=== PATIENT | male | born 1990 | race Two or more races ===

== ENCOUNTER 2018-03-04 15:40 | Emergency (ER) | payer SELFPAY ==
[~2018-03-04] VITALS: Ht 152.4 cm; Wt 75.0 kg
[2018-03-04 15:45] VITALS: BP 143/95
== END 2018-03-04 20:19 | disposition left against medical advice (07) ==
LOC: ER 16:40
DX: T14.8XXA Other injury of unspecified body region, initial encounter (principal); W57.XXXA Bitten or stung by nonvenomous insect and other nonvenomous arthropods, initial encounter; Y93.89 Activity, other specified; Y92.89 Other specified places as the place of occurrence of the external cause; Y99.8 Other external cause status
CPT/HCPCS: 99281

== ENCOUNTER 2018-04-12 14:03 | Inpatient (IN) | payer SELFPAY ==
[~2018-04-12] VITALS: Ht 160 cm; Wt 74.8 kg
[2018-04-12] MEDS ORDERED: MORPHINE SULFATE 4 MG/ML CPJ (NOT FOR IM USE) IV STA (14:35)
[2018-04-12] MEDS ORDERED: ONDANSETRON HCL 4MG/2ML INJ IV STA (14:35)
[2018-04-12] MEDS ORDERED: TETANUS, DIPHTHERIA, PERTUSSIS VAC/PF 0.5ML (>7YR OLD) IM ONE (15:30)
[2018-04-12 15:52] LABS: BASOPHILS % 0.5 % (0.0-2.0); EOSINOPHILS % 1.9 % (0.0-5.0); HEMATOCRIT. 49.1 % (42.0-52.0); HEMOGLOBIN. 16.7 g/dL (14.0-18.0); LYMPHOCYTES % 30.5 % (20.0-50.0); MEAN CORPUSCULAR HEMOGLOBIN 30.5 pg (28.0-32.0); MEAN CORPUSCULAR VOLUME 89.5 fL (80.0-94.0); MEAN PLATELET VOLUME 9.1 fl (7.4-10.4); MONOCYTES % 9.6 % (2.0-8.0); NEUTROPHILS % 57.5 % (40.0-76.0); PLATELET 302 x1000/uL (130-400); RED BLOOD CELL COUNT 5.48 mill/uL (4.7-6.1); RED CELL DISTRIBUTION WIDTH 13.3 % (11.6-14.6)
[2018-04-12 15:58] LABS: CHLORIDE 104 mEq/L (98-107); PROTHROMBIN TIME 9.9 sec (9.1-11.1)
[2018-04-12] MEDS ORDERED: LIDOCAINE HCL/EPINEPHRINE 1%-EPI 1:100,000 20 ML VIAL MC ONE (17:15)
[2018-04-12] MEDS ORDERED: BACITRACIN ZINC OINT UDPKT TOP ONE (17:15)
[2018-04-12] MEDS ORDERED: IOHEXOL-350 100 ML BOTTLE ONE (18:28)
[2018-04-12] MEDS ORDERED: CEFAZOLIN 1000MG PREMIX 50 ML IV ONE (19:15)
[2018-04-12] MEDS ORDERED: HYDROCODONE/ACETAMINOPHEN 10/325MG TABLET PO ONE (19:45)
[2018-04-12 22:27] LABS: CLARITY URINE CLEAR (CLEAR); COLOR URINE YELLOW (YELLOW); KETONES URINE NEGATIVE (NEGATIVE); LEUKOCYTE ESTERASE URINE NEGATIVE (NEGATIVE); NITRITE URINE NEGATIVE (NEGATIVE); OCCULT BLOOD URINE NEGATIVE (NEGATIVE); PROTEIN URINE NEGATIVE (NEGATIVE); UROBILINOGEN URINE 0.2 E.U./dL (0.2-1.0)
[2018-04-13] MEDS ORDERED: AMPICILLIN SOD/SULBACTAM NA 3 G in SODIUM CHLORIDE 0.9% 100 ML IV STA (00:36)
[2018-04-13 04:00] VITALS: BP 143/84
[2018-04-13] MEDS ORDERED: HYDROCODONE/ACETAMINOPHEN 5/325MG TABLET PO PRN (04:45)
[2018-04-13] MEDS: MORPHINE SULFATE 4 MG/ML CPJ (NOT FOR IM USE) IV PRN ×4 (05:01→20:28)
[2018-04-13 05:47] VITALS: BP 158/83
[2018-04-13] MEDS: PIPERACILLIN/TAZ 3.375G PREMIX 50 ML IV SCH ×4 (06:55→23:56)
[2018-04-13 08:00] VITALS: BP 168/85
[2018-04-13 12:00] VITALS: BP 158/101
[2018-04-13 16:00] VITALS: BP 145/87
[2018-04-13 20:00] VITALS: BP 146/76
[2018-04-13] MEDS ORDERED: ACETAMINOPHEN 325MG TABLET PO PRN (20:45)
[2018-04-14] VITALS: BP 148/78
[2018-04-14] MEDS: MORPHINE SULFATE 4 MG/ML CPJ (NOT FOR IM USE) IV PRN ×2 (01:43→09:56)
[2018-04-14 04:00] VITALS: BP 138/76
[2018-04-14] MEDS: PIPERACILLIN/TAZ 3.375G PREMIX 50 ML IV SCH ×2 (07:38→11:40)
[2018-04-14 10:02] VITALS: BP 138/76
== END 2018-04-14 11:55 | disposition home or self-care (01) | DRG 384 ==
LOC: ER 14:03 → 6EST 04-13 00:39 → ENRESERV 04-13 00:56
PROVIDERS: ADMIT Internal Medicine; ATTEND Internal Medicine
PROC: 0JQH3ZZ Repair Left Lower Arm Subcutaneous Tissue and Fascia, Percutaneous Approach (ICD-10-PCS; principal; 2018-04-13)
PROC: 0HQCXZZ Repair Left Upper Arm Skin, External Approach (ICD-10-PCS; 2018-04-13)
DX: S51.022A Laceration with foreign body of left elbow, initial encounter (principal); T22.322A Burn of third degree of left elbow, initial encounter; S46.222A Laceration of muscle, fascia and tendon of other parts of biceps, left arm, initial encounter; J45.909 Unspecified asthma, uncomplicated; V43.52XA Car driver injured in collision with other type car in traffic accident, initial encounter; Y93.89 Activity, other specified; Y92.488 Other paved roadways as the place of occurrence of the external cause; Y99.8 Other external cause status
CPT/HCPCS: 12001; 12031; 36415; 71045; 71275; 73060; 73080; 73200; 74174; 90471; 90715; 93005; 96365; 96375; 99285; A4565; J0295; J0690; J2270; J2405; J2543; J3490; J7030; J7050; Q9967

== ENCOUNTER 2018-04-25 14:16 | Emergency (ER) | payer SELFPAY ==
[~2018-04-25] VITALS: Ht 165.1 cm; Wt 73.0 kg
[2018-04-25 14:23] VITALS: BP 155/95
== END 2018-04-25 18:00 | disposition left against medical advice (07) ==
LOC: ER 14:16
DX: Z53.21 Procedure and treatment not carried out due to patient leaving prior to being seen by health care provider (principal)

== ENCOUNTER 2018-04-30 14:09 | Emergency (ER) | payer SELFPAY ==
[~2018-04-30] VITALS: Ht 165.1 cm; Wt 75.0 kg
[2018-04-30] MEDS ORDERED: IBUPROFEN 600MG TABLET PO ONE (14:45)
[2018-04-30 14:51] VITALS: BP 119/68
[2018-04-30] MEDS ORDERED: BACITRACIN ZINC OINT UDPKT TOP ONE (15:30)
== END 2018-04-30 15:40 | disposition home or self-care (01) ==
LOC: ER 15:39
DX: Z48.02 Encounter for removal of sutures (principal); S40.812A Abrasion of left upper arm, initial encounter; L03.114 Cellulitis of left upper limb; X58.XXXA Exposure to other specified factors, initial encounter; Y93.89 Activity, other specified; Y92.89 Other specified places as the place of occurrence of the external cause; F12.90 Cannabis use, unspecified, uncomplicated; F15.10 Other stimulant abuse, uncomplicated; Z72.0 Tobacco use
CPT/HCPCS: 99283

== ENCOUNTER 2019-08-21 07:34 | Emergency (ER) | payer MEDICAID | END 2019-08-21 08:53 | disposition left against medical advice (07) | LOC: ER 08:01 | DX: Z53.21 Procedure and treatment not carried out due to patient leaving prior to being seen by health care provider (principal) ==

== ENCOUNTER 2019-10-20 | Emergency (ER) | payer MEDICAID ==
[~2019-10-20] VITALS: Ht 165.1 cm; Wt 68.0 kg
[2019-10-20] MEDS ORDERED: CEFAZOLIN 1000MG PREMIX 50 ML IV ONE (00:15)
[2019-10-20] MEDS ORDERED: SODIUM CHLORIDE 0.9% 1,000 ML IV ONE (00:15)
[2019-10-20] MEDS ORDERED: LIDOCAINE HCL/EPINEPHRINE 1%-EPI 1:100,000 30 ML VIAL INFIL ONE (00:30)
[2019-10-20 00:46] LABS: BASOPHILS % 0.6 % (0.0-2.0); EOSINOPHILS % 2.1 % (0.0-5.0); HEMATOCRIT. 46.4 % (42.0-52.0); HEMOGLOBIN. 15.5 g/dL (14.0-18.0); LYMPHOCYTES % 38.6 % (20.0-50.0); MEAN CORPUSCULAR HEMOGLOBIN 29.4 pg (28.0-32.0); MEAN CORPUSCULAR VOLUME 88.2 fL (80.0-94.0); MEAN PLATELET VOLUME 9.3 fl (7.4-10.4); MONOCYTES % 6.8 % (2.0-8.0); NEUTROPHILS % 51.9 % (40.0-76.0); PLATELET 306 x1000/uL (130-400); RED BLOOD CELL COUNT 5.26 mill/uL (4.7-6.1); RED CELL DISTRIBUTION WIDTH 14.4 % (11.6-14.6)
[2019-10-20 00:54] LABS: CHLORIDE 106 mEq/L (98-107)
[2019-10-20 00:58] LABS: ETHANOL BLOOD 194 mg/dL
[2019-10-20] MEDS ORDERED: LIDOCAINE HCL/EPINEPHRINE 1%-EPI 1:100,000 20 ML VIAL INFIL SCH (01:00)
[2019-10-20 01:09] LABS: INR 0.9; PARTIAL THROMBOPLASTIN TIME 26.1 sec (23.4-31.0); PROTHROMBIN TIME 10.3 sec (9.6-11.0)
[2019-10-20] MEDS ORDERED: TETANUS, DIPHTHERIA, PERTUSSIS VAC/PF 0.5ML (>7YR OLD) IM ONE (02:45)
[2019-10-20] MEDS ORDERED: KETOROLAC 30MG/ML VIAL IV ONE (04:30)
[2019-10-20 05:30] VITALS: BP 128/81
== END 2019-10-20 06:25 | disposition home or self-care (01) ==
LOC: ER 00:26
DX: S01.81XA Laceration without foreign body of other part of head, initial encounter (principal); S01.112A Laceration without foreign body of left eyelid and periocular area, initial encounter; S41.011A Laceration without foreign body of right shoulder, initial encounter; J45.909 Unspecified asthma, uncomplicated; W26.0XXA Contact with knife, initial encounter; X58.XXXA Exposure to other specified factors, initial encounter; Y93.89 Activity, other specified; Y92.89 Other specified places as the place of occurrence of the external cause; Y99.8 Other external cause status
CPT/HCPCS: 12005; 12017; 36415; 71045; 80053; 80320; 84484; 85025; 85610; 85730; 96365; 96375; 99285; J0690; J1885; J3490; J7030; 12015; G0480

== ENCOUNTER 2019-10-28 15:15 | Emergency (ER) | payer MEDICAID ==
[~2019-10-28] VITALS: Ht 165.1 cm; Wt 74.8 kg
[2019-10-28 15:34] VITALS: BP 132/86
== END 2019-10-28 18:18 | disposition home or self-care (01) ==
LOC: ER 15:15
DX: Z48.02 Encounter for removal of sutures (principal)
CPT/HCPCS: 99281

== ENCOUNTER 2019-11-03 11:23 | Emergency (ER) | payer MEDICAID ==
[~2019-11-03] VITALS: Ht 165.1 cm; Wt 75.0 kg
[2019-11-03 11:49] VITALS: BP 125/62
[2019-11-03] MEDS ORDERED: BACITRACIN ZINC OINT UDPKT TOP ONE (12:30)
== END 2019-11-03 12:46 | disposition home or self-care (01) ==
LOC: ER 11:23
DX: S00.511D Abrasion of lip, subsequent encounter (principal); F12.10 Cannabis abuse, uncomplicated; F14.10 Cocaine abuse, uncomplicated; J45.909 Unspecified asthma, uncomplicated; Z48.02 Encounter for removal of sutures; X58.XXXD Exposure to other specified factors, subsequent encounter
CPT/HCPCS: 99282; 99283

== ENCOUNTER 2019-11-04 10:21 | Emergency (ER) | payer MEDICAID ==
[~2019-11-04] VITALS: Ht 165.1 cm; Wt 74.0 kg
[2019-11-04 10:29] VITALS: BP 158/96
== END 2019-11-04 11:08 | disposition home or self-care (01) ==
LOC: ER 10:21
DX: Z48.02 Encounter for removal of sutures (principal)
CPT/HCPCS: 99281

== ENCOUNTER 2020-03-20 02:38 | Emergency (ER) | payer MEDICAID ==
[~2020-03-20] VITALS: Ht 162.6 cm; Wt 75.0 kg
[2020-03-20] MEDS ORDERED: IBUPROFEN 600MG TABLET PO STA (03:27)
[2020-03-20 03:45] VITALS: BP 144/92
== END 2020-03-20 04:30 | disposition home or self-care (01) ==
LOC: ER 02:38
DX: L03.113 Cellulitis of right upper limb (principal); R03.0 Elevated blood-pressure reading, without diagnosis of hypertension; F14.10 Cocaine abuse, uncomplicated; F12.90 Cannabis use, unspecified, uncomplicated
CPT/HCPCS: 73080; 99283

== ENCOUNTER 2020-11-05 22:06 | Emergency (ER) | payer MEDICAID ==
[~2020-11-05] VITALS: Ht 165.1 cm; Wt 73.0 kg
[2020-11-05] MEDS ORDERED: CEPH500C2 MT (23:30)
[2020-11-05] MEDS ORDERED: IBUPROFEN 600MG TABLET PO ONE (23:30)
[2020-11-05] MEDS ORDERED: IBUP-2028 MT (23:31)
[2020-11-05 23:48] VITALS: BP 141/99
== END 2020-11-06 00:04 | disposition home or self-care (01) ==
LOC: ER 22:06
DX: T63.301A Toxic effect of unspecified spider venom, accidental (unintentional), initial encounter (principal); L03.211 Cellulitis of face; Y93.89 Activity, other specified; Y92.89 Other specified places as the place of occurrence of the external cause
CPT/HCPCS: 99283

== ENCOUNTER 2021-07-26 20:45 | Emergency (ER) | payer MEDICAID ==
[~2021-07-26] VITALS: Ht 165.1 cm; Wt 80.0 kg
[~2021-07-26 20:45] MED LIST: CEPH500C2 MT; IBUP-2028 MT
[2021-07-26] MEDS ORDERED: IBUPROFEN 400MG TABLET PO ONE (21:45)
[2021-07-26] MEDS ORDERED: AMOXICILLIN/POTASSIUM CLAVULANATE 875/125MG TAB PO ONE (21:45)
[2021-07-26] MEDS ORDERED: HYDROCODONE/ACETAMINOPHEN 5/325MG TABLET PO ONE (21:45)
[2021-07-26 21:53] VITALS: BP 154/99
[2021-07-26] MEDS ORDERED: AMOX-424 MT (22:12)
[2021-07-26] MEDS ORDERED: HYDR-4001 MT (22:12)
[2021-07-26] MEDS ORDERED: IBUP-2028 MT (22:13)
== END 2021-07-26 22:37 | disposition home or self-care (01) ==
LOC: ER 20:45
DX: K04.7 Periapical abscess without sinus (principal); K02.9 Dental caries, unspecified; Z20.822 Contact with and (suspected) exposure to COVID-19; R00.0 Tachycardia, unspecified
CPT/HCPCS: 87426; 93005; 99284

== ENCOUNTER 2021-08-26 19:18 | Emergency (ER) | payer MEDICAID ==
[~2021-08-26] VITALS: Ht 165.1 cm; Wt 71.0 kg
[~2021-08-26 19:18] MED LIST changes: +AMOX-424 MT; +HYDR-4001 MT
[2021-08-26] MEDS ORDERED: CEFAZOLIN 1000MG PREMIX 50 ML IV ONE (20:30)
[2021-08-26] MEDS ORDERED: TETANUS, DIPHTHERIA, PERTUSSIS VAC/PF 0.5ML (>10YR OLD) IM ONE (20:30)
[2021-08-26] MEDS ORDERED: HYDROCODONE/ACETAMINOPHEN 5/325MG TABLET PO ONE (20:45)
[2021-08-26 20:55] LABS: BASOPHILS % 0.4 % (0.0-2.0); EOSINOPHILS % 1.9 % (0.0-5.0); HEMATOCRIT. 44.2 % (42.0-52.0); HEMOGLOBIN. 14.6 g/dL (14.0-18.0); LYMPHOCYTES % 21.9 % (20.0-50.0); MEAN CORPUSCULAR HEMOGLOBIN 28.3 pg (28.0-32.0); MEAN PLATELET VOLUME 8.2 fl (7.4-10.4); MONOCYTES % 8.4 % (2.0-8.0); NEUTROPHILS % 67.4 % (40.0-76.0); PLATELET 275 x1000/uL (130-400); RED BLOOD CELL COUNT 5.14 mill/uL (4.7-6.1); RED CELL DISTRIBUTION WIDTH 14.6 % (11.6-14.6)
[2021-08-26 20:58] LABS: CHLORIDE 105 mEq/L (98-107)
[2021-08-27] MEDS ORDERED: HYDROCODONE/ACETAMINOPHEN 5/325MG TABLET PO ONE (04:00)
[2021-08-27] MEDS ORDERED: CEFAZOLIN 1000MG PREMIX 50 ML IV ONE ×2 (04:00)
[2021-08-27] MEDS ORDERED: OXYC-100 PO (11:50)
[2021-08-27] MEDS ORDERED: IBUP-2028 PO (11:50)
[2021-08-27 12:08] VITALS: BP 148/73
[2021-08-27] MEDS ORDERED: CEFAZOLIN 1000MG PREMIX 50 ML IV SCH ×3 (13:00→21:00)
== END 2021-08-27 12:13 | disposition home or self-care (01) ==
LOC: ER 19:18
DX: S61.212A Laceration without foreign body of right middle finger without damage to nail, initial encounter (principal); F14.10 Cocaine abuse, uncomplicated; F12.10 Cannabis abuse, uncomplicated; W45.8XXA Other foreign body or object entering through skin, initial encounter; Y93.89 Activity, other specified; Y92.89 Other specified places as the place of occurrence of the external cause
CPT/HCPCS: 12004; 36415; 73130; 80053; 85025; 90471; 90715; 96365; 96366; 99285; J0690

== ENCOUNTER 2022-08-30 10:37 | Emergency (ER) | payer MEDICAID ==
[~2022-08-30] VITALS: Ht 177.8 cm; Wt 90.0 kg
[~2022-08-30 10:37] MED LIST changes: +IBUP-2028 PO; +OXYC-100 PO
[2022-08-30 10:50] VITALS: BP 152/104
== END 2022-08-30 11:05 | disposition left against medical advice (07) ==
LOC: ER 10:46
DX: R56.9 Unspecified convulsions (principal); R41.82 Altered mental status, unspecified
CPT/HCPCS: 99283

== ENCOUNTER 2022-09-04 20:28 | Emergency (ER) | payer MEDICAID ==
[~2022-09-04] VITALS: Ht 162.6 cm; Wt 85.5 kg
[2022-09-04] MEDS ORDERED: IBUPROFEN 600MG TABLET PO ONE (23:00)
[2022-09-04] MEDS ORDERED: BACITRACIN ZINC OINT UDPKT TOP ONE (23:00)
[2022-09-05] MEDS ORDERED: NAPR-681 PO (00:44)
[2022-09-05] MEDS ORDERED: BACITRACIN ZINC OINT UDPKT TOP NR (01:00)
[2022-09-05 01:09] VITALS: BP 129/78
== END 2022-09-05 01:10 | disposition home or self-care (01) ==
LOC: ER 20:28
DX: S20.312A Abrasion of left front wall of thorax, initial encounter (principal); S61.211A Laceration without foreign body of left index finger without damage to nail, initial encounter; S01.512A Laceration without foreign body of oral cavity, initial encounter; X99.1XXA Assault by knife, initial encounter; Y93.89 Activity, other specified; Y92.89 Other specified places as the place of occurrence of the external cause
CPT/HCPCS: 71046; 73140; 99284

== ENCOUNTER 2023-02-09 06:18 | Emergency (ER) | payer MEDICAID ==
[~2023-02-09] VITALS: Ht 165.1 cm; Wt 82.0 kg
[~2023-02-09 06:18] MED LIST changes: +NAPR-681 PO
[2023-02-09 06:30] VITALS: BP 137/87; PULSE 88; RESP 14; TEMP 98.3; O2SAT 98
== END 2023-02-09 10:21 | disposition left against medical advice (07) ==
LOC: ER 06:18
DX: Z53.21 Procedure and treatment not carried out due to patient leaving prior to being seen by health care provider (principal)
CPT/HCPCS: 99281

== ENCOUNTER 2023-10-20 05:41 | Emergency (ER) | payer MEDICAID ==
[~2023-10-20] VITALS: Ht 165.1 cm; Wt 73.0 kg
[2023-10-20 05:46] VITALS: BP 134/89; PULSE 92; RESP 20; TEMP 98; O2SAT 100
[2023-10-20] MEDS ORDERED: IBUP-2029 MT (08:39)
== END 2023-10-20 09:33 | disposition home or self-care (01) ==
LOC: ER 05:41
DX: S63.502A Unspecified sprain of left wrist, initial encounter (principal); S80.11XA Contusion of right lower leg, initial encounter; X58.XXXA Exposure to other specified factors, initial encounter; Y93.89 Activity, other specified; Y92.89 Other specified places as the place of occurrence of the external cause; Y99.8 Other external cause status
CPT/HCPCS: 29125; 73110; 73590; 99284

== ENCOUNTER 2024-06-05 15:14 | Emergency (ER) | payer MEDICAID, OTHER ==
[~2024-06-05] VITALS: Ht 162.6 cm; Wt 77.0 kg
[~2024-06-05 15:14] MED LIST changes: +IBUP-2029 MT
[2024-06-05 15:43] VITALS: TEMP 98.8; O2SAT 100
[2024-06-05] MEDS ORDERED: SULF1TAB48 MT (17:55)
[2024-06-05] MEDS ORDERED: CEPH500C2 MT (17:55)
[2024-06-05] MEDS ORDERED: IBUP-2029 MT (17:55)
[2024-06-05 18:36] VITALS: BP 142/71; PULSE 88; RESP 19; O2SAT 97
== END 2024-06-05 18:37 | disposition home or self-care (01) ==
LOC: ER 15:14
DX: L03.111 Cellulitis of right axilla (principal); L03.311 Cellulitis of abdominal wall; Z79.899 Other long term (current) drug therapy
CPT/HCPCS: 99283

== ENCOUNTER 2024-07-27 23:35 | Emergency (ER) | payer MEDICAID, OTHER ==
[~2024-07-27 23:35] MED LIST changes: +SULF1TAB48 MT
[2024-07-27] MEDS ORDERED: CEFAZOLIN 1000MG PREMIX 50 ML IV ONE (23:45)
[2024-07-27] MEDS: SODIUM CHLORIDE 0.9% 1,000 ML IV ONE (23:48)
[2024-07-27 23:56] LABS: BASOPHILS % 0.4 % (0.0-2.0); EOSINOPHILS % 1.5 % (0.0-5.0); HEMATOCRIT. 35.1 % (42.0-52.0); HEMOGLOBIN. 11.4 g/dL (14.0-18.0); LYMPHOCYTES % 34.3 % (20.0-50.0); MEAN CORPUSCULAR HEMOGLOBIN 27.7 pg (28.0-32.0); MEAN CORPUSCULAR HGB CONC 32.3 g/dL (31.0-37.0); MEAN CORPUSCULAR VOLUME 85.6 fL (80.0-94.0); MEAN PLATELET VOLUME 8.2 fl (7.4-10.4); MONOCYTES % 9.2 % (2.0-8.0); NEUTROPHILS % 54.6 % (40.0-76.0); PLATELET 350 x1000/uL (130-400); RED CELL DISTRIBUTION WIDTH 14.3 % (11.6-14.6); WHITE BLOOD COUNT 10.6 x1000/uL (4.5-11.0)
[2024-07-28] LABS: CHLORIDE 105 mEq/L (98-107); SODIUM 142 mEq/L (136-145)
[2024-07-28 00:01] LABS: CALCIUM 8.9 mg/dL (8.7-10.4); CARBON DIOXIDE 21 mEq/L (21-32)
[2024-07-28 00:04] LABS: PARTIAL THROMBOPLASTIN TIME 23.7 sec (23.4-31.0); PROTHROMBIN TIME 10.7 sec (9.6-11.0)
[2024-07-28 00:06] LABS: CREATININE 0.9 mg/dL (0.6-1.3); GLUCOSE 113 mg/dL (70-105); UREA NITROGEN BLOOD 15 mg/dL (9-23)
[2024-07-28] MEDS ORDERED: IOHEXOL-350 100 ML BOTTLE ONE (00:14)
[2024-07-28 00:24] LABS: ALANINE AMINOTRANSFERASE 42 IU/L (10-49); ALBUMIN 3.7 g/dL (3.2-4.8); ASPARTATE AMINOTRANSFERASE 28 IU/L (<34); BILIRUBIN DIRECT 0.1 mg/dL (<=3.0); BILIRUBIN TOTAL 0.3 mg/dL (0.1-1.0); PROTEIN TOTAL 6.1 g/dL (6.0-8.3)
[2024-07-28] MEDS: FENTANYL CITRATE/PF 50MCG/ML 2ML VIAL IV ONE ×2 (00:38→02:11)
[2024-07-28] MEDS: TETANUS, DIPHTHERIA, PERTUSSIS VAC/PF 0.5ML (>10YR OLD) IM ONE (00:39)
[2024-07-28 00:57] LABS: POTASSIUM 2.7 mEq/L (3.5-5.1)
[2024-07-28] MEDS ORDERED: KCL 20MEQ/100ML PREMIX 100 ML IV SCH (01:00)
[2024-07-28 01:19] LABS: BASOPHILS % 0.3 % (0.0-2.0); HEMATOCRIT. 26.8 % (42.0-52.0); HEMOGLOBIN. 8.9 g/dL (14.0-18.0); LYMPHOCYTES % 11.5 % (20.0-50.0); MEAN CORPUSCULAR HEMOGLOBIN 28.2 pg (28.0-32.0); MEAN CORPUSCULAR VOLUME 85.4 fL (80.0-94.0); MONOCYTES % 7.8 % (2.0-8.0); NEUTROPHILS % 79.4 % (40.0-76.0); PLATELET 179 x1000/uL (130-400); RED BLOOD CELL COUNT 3.14 mill/uL (4.7-6.1); RED CELL DISTRIBUTION WIDTH 14.4 % (11.6-14.6); WHITE BLOOD COUNT 9.1 x1000/uL (4.5-11.0)
[2024-07-28 02:00] VITALS: BP 161/104; PULSE 72; RESP 16; O2SAT 100
== END 2024-07-28 02:12 | disposition short-term general hospital (02) ==
LOC: ER 23:35
DX: G89.11 Acute pain due to trauma (principal); R58 Hemorrhage, not elsewhere classified; Z79.1 Long term (current) use of non-steroidal anti-inflammatories (NSAID); W34.00XA Accidental discharge from unspecified firearms or gun, initial encounter; Y93.89 Activity, other specified; Y92.89 Other specified places as the place of occurrence of the external cause; Y99.8 Other external cause status
CPT/HCPCS: 99291; 71275; 74174; 71045; 96361; 80076; 80048; 83690; 85025 ×2; 85610; 85730; 86850; 86900; 86901; 36415 ×2; 73551; 72170; 73590; 90715; 73706; 96374; 90471; 96376; J3010 ×2; J0690; J7030; Q9967; 96375; 99292

== ENCOUNTER 2024-11-26 23:20 | Emergency (ER) | payer OTHER ==
[~2024-11-26] VITALS: Ht 162.6 cm; Wt 83.0 kg
[2024-11-26 23:35] VITALS: O2SAT 99
[2024-11-27] MEDS: BACITRACIN ZINC OINT UDPKT TOP ONE (01:15)
[2024-11-27] MEDS: LIDOCAINE HCL/PF 1% 10 MG/ML 5ML VIAL INFIL ONE (01:15)
[2024-11-27 03:15] VITALS: BP 144/95; PULSE 73; RESP 18; TEMP 36.5; O2SAT 100
== END 2024-11-27 03:16 | disposition home or self-care (01) ==
LOC: ER 23:20
DX: S61.212A Laceration without foreign body of right middle finger without damage to nail, initial encounter (principal); F15.90 Other stimulant use, unspecified, uncomplicated; Z79.1 Long term (current) use of non-steroidal anti-inflammatories (NSAID); Z79.899 Other long term (current) drug therapy; Z98.890 Other specified postprocedural states; W26.0XXA Contact with knife, initial encounter; Y93.89 Activity, other specified; Y92.89 Other specified places as the place of occurrence of the external cause; Y99.8 Other external cause status
CPT/HCPCS: 99281; J2003; Z7610 ×2; 99282

== ENCOUNTER 2025-01-07 18:23 | Emergency (ER) | payer OTHER ==
[~2025-01-07] VITALS: Ht 162.6 cm; Wt 74.8 kg
[2025-01-07 18:24] VITALS: O2SAT 99
[2025-01-07 18:26] VITALS: BP 127/72; PULSE 85; RESP 16; TEMP 36.9; O2SAT 98
== END 2025-01-07 22:21 | disposition left against medical advice (07) ==
LOC: ER 18:23
DX: S01.511A Laceration without foreign body of lip, initial encounter (principal); Z53.21 Procedure and treatment not carried out due to patient leaving prior to being seen by health care provider; Y08.89XA Assault by other specified means, initial encounter; Y93.89 Activity, other specified; Y92.89 Other specified places as the place of occurrence of the external cause; Y99.8 Other external cause status

== ENCOUNTER 2025-03-22 15:48 | Inpatient (IN) | payer OTHER ==
[~2025-03-22] VITALS: Ht 162.6 cm; Wt 82.2 kg
[~2025-03-22 15:48] MED LIST changes: +IBUP-1455 MT; -IBUP-2029 MT
[2025-03-22 16:10] VITALS: O2SAT 100
[2025-03-22] MEDS ORDERED: CEFTRIAXONE SODIUM 1G VIAL IM ONE (17:15)
[2025-03-22] MEDS: SODIUM CHLORIDE 0.9% (SEPSIS BOLUS) IV ONE (19:15)
[2025-03-22 19:35] LABS: BASOPHILS % 0.1 % (0.0-2.0); EOSINOPHILS % 0.1 % (0.0-5.0); HEMATOCRIT. 31.8 % (42.0-52.0); HEMOGLOBIN. 9.5 g/dL (14.0-18.0); LYMPHOCYTES % 13.6 % (20.0-50.0); MEAN PLATELET VOLUME 8.9 fl (7.4-10.4); MONOCYTES % 5.9 % (2.0-8.0); NEUTROPHILS % 80.3 % (40.0-76.0); PLATELET 340 x1000/uL (130-400); RED BLOOD CELL COUNT 5.05 mill/uL (4.7-6.1); RED CELL DISTRIBUTION WIDTH 18.4 % (11.6-14.6)
[2025-03-22 19:36] LABS: ADD RBC MORPHOLOGY YES
[2025-03-22 19:46] LABS: INR 1.0
[2025-03-22 19:47] LABS: PLATELET ESTIMATE NORMAL
[2025-03-22 19:54] LABS: CREATININE 0.7 mg/dL (0.6-1.3); UREA NITROGEN BLOOD 12 mg/dL (9-23)
[2025-03-22 19:56] LABS: ASPARTATE AMINOTRANSFERASE 25 IU/L (<34); BILIRUBIN DIRECT 0.2 mg/dL (<=3.0); BILIRUBIN TOTAL 0.5 mg/dL (0.1-1.0); PROTEIN TOTAL 7.7 g/dL (6.0-8.3)
[2025-03-22] MEDS: CEFTRIAXONE SODIUM 1G VIAL IM SCH (19:56)
[2025-03-22] MEDS: VANCOMYCIN 1.5GM PMX (XELLIA) 300 ML IV SCH (20:09)
[2025-03-22 20:45] VITALS: BP 119/75; PULSE 76; RESP 16; TEMP 36.2; TEMP 36.2512; O2SAT 100
[2025-03-22] MEDS ORDERED: GUAIFENESIN 200MG/10ML SUGAR FREE UDC PO PRN (23:00)
[2025-03-22] MEDS ORDERED: ONDANSETRON HCL 4MG/2ML INJ IV PRN (23:00)
[2025-03-22] MEDS ORDERED: IPRATROPIUM/ALBUTEROL 0.5-3(2.5)MG/3ML NEB HHN PRN (23:00)
[2025-03-22] MEDS ORDERED: MORPHINE SULFATE 2 MG/ML INJ (NOT FOR IM USE) IV PRN (23:00)
[2025-03-22] MEDS ORDERED: ACETAMINOPHEN 325MG TABLET PO PRN (23:00)
[2025-03-22] MEDS ORDERED: DOCUSATE SODIUM 100MG CAPSULE PO PRN (23:00)
[2025-03-22] MEDS ORDERED: MAGNESIUM/ALUMINUM HYDROXIDE/SIMETHICONE 30ML UDC PO PRN (23:00)
[2025-03-22] MEDS ORDERED: CLONIDINE 0.1MG TABLET PO PRN (23:00)
[2025-03-23] VITALS (8 sets, daily range): BP systolic 94–129; BP diastolic 52–95; PULSE 54–86; RESP 17–22; TEMP 36.2–36.6; O2SAT 95–100
[2025-03-23 00:38] LABS: CLARITY URINE CLEAR (CLEAR); COLOR URINE YELLOW (YELLOW); GLUCOSE URINE NEGATIVE (NEGATIVE); KETONES URINE NEGATIVE (NEGATIVE); LEUKOCYTE ESTERASE URINE NEGATIVE (NEGATIVE); NITRITE URINE NEGATIVE (NEGATIVE); OCCULT BLOOD URINE NEGATIVE (NEGATIVE); PH URINE 6.0 (4.5-8.0); PROTEIN URINE 1+ (NEGATIVE); SPECIFIC GRAVITY URINE 1.022 (1.005-1.030); UROBILINOGEN URINE 0.2 E.U./dL (0.2-1.0)
[2025-03-23 00:54] LABS: *AMPHETAMINES SCREEN URINE PRESUMPTIVE POSITIVE (NEGATIVE); *BARBITURATES SCREEN URINE NEGATIVE (NEGATIVE); *BENZODIAZEPINES SCREEN URINE NEGATIVE (NEGATIVE); *COCAINE SCREEN URINE NEGATIVE (NEGATIVE)
[2025-03-23 00:55] LABS: CANNABINOID URINE SCREEN NEGATIVE (NEGATIVE); ECSTASY MDMA SCREEN URINE CONF.TEST INDICATED (NEGATIVE); METHADONE URINE SCREEN NEGATIVE (NEGATIVE); OPIATES URINE SCREEN NEGATIVE (NEGATIVE); PHENCYCLIDINE URINE SCREEN NEGATIVE (NEGATIVE)
[2025-03-23 01:10] LABS: BACTERIA URINE NONE SEEN; FINE GRANULAR CASTS URINE 0-5 /lpf; RBC URINE 0-2 /hpf (0-2); SQUAMOUS EPITHELIAL CELL URINE 1+ /lpf (RARE/1+); WBC URINE 0-2 /hpf (0-2)
[2025-03-23 08:44] LABS: BASOPHILS % 0.2 % (0.0-2.0); EOSINOPHILS % 0.4 % (0.0-5.0); HEMATOCRIT. 30.5 % (42.0-52.0); HEMOGLOBIN. 9.1 g/dL (14.0-18.0); LYMPHOCYTES % 21.4 % (20.0-50.0); MEAN PLATELET VOLUME 8.7 fl (7.4-10.4); MONOCYTES % 12.3 % (2.0-8.0); NEUTROPHILS % 65.7 % (40.0-76.0); PLATELET 298 x1000/uL (130-400); RED BLOOD CELL COUNT 4.84 mill/uL (4.7-6.1); RED CELL DISTRIBUTION WIDTH 18.4 % (11.6-14.6)
[2025-03-23 09:05] LABS: LDL CHOLESTEROL 67.0 mg/dL (5-100); TRIGLYCERIDE 83.0 mg/dL (0-150)
[2025-03-23] MEDS: ENOXAPARIN 40MG/0.4ML SYR SUBCUT SCH (09:58)
[2025-03-23] MEDS: ACETAMINOPHEN 325MG TABLET PO PRN (11:38)
[2025-03-23] MEDS: VANCOMYCIN 1GM/200ML PMX (BAXTER) IV SCH (19:07)
[2025-03-23] MEDS: PIPERACILLIN/TAZO 3.375G/50ML 50 ML IV SCH (19:33)
[2025-03-24] MEDS: HYDROCODONE/ACETAMINOPHEN 5/325MG TABLET PO PRN (01:26)
[2025-03-24 04:29] VITALS: BP 126/78; PULSE 72; RESP 19; TEMP 36.4; O2SAT 99
[2025-03-24 08:00] VITALS: BP 110/74; PULSE 79; RESP 18; TEMP 36.3; O2SAT 100
[2025-03-24] MEDS: MORPHINE SULFATE 4 MG/ML INJ (FOR IV/IM USE) IV PRN (10:08)
[2025-03-24 10:31] LABS: BASOPHILS % 0.2 % (0.0-2.0); EOSINOPHILS % 0.0 % (0.0-5.0); HEMATOCRIT. 33.2 % (42.0-52.0); HEMOGLOBIN. 9.9 g/dL (14.0-18.0); LYMPHOCYTES % 13.4 % (20.0-50.0); MEAN PLATELET VOLUME 8.6 fl (7.4-10.4); MONOCYTES % 6.4 % (2.0-8.0); NEUTROPHILS % 80.0 % (40.0-76.0); PLATELET 363 x1000/uL (130-400); RED BLOOD CELL COUNT 5.35 mill/uL (4.7-6.1); RED CELL DISTRIBUTION WIDTH 18.2 % (11.6-14.6)
[2025-03-24 10:42] LABS: CREATININE 0.7 mg/dL (0.6-1.3); UREA NITROGEN BLOOD 9 mg/dL (9-23)
[2025-03-24 12:00] VITALS: BP 108/74; PULSE 80; RESP 18; TEMP 36.6; O2SAT 100
[2025-03-24] MEDS: VANCOMYCIN 1.25GM/250ML IV SCH (12:12)
[2025-03-24] MEDS: CLONIDINE 0.1MG TABLET PO SCH (14:00)
[2025-03-24 16:00] VITALS: BP 118/73; PULSE 60; RESP 18; TEMP 36.4
[2025-03-24 20:00] VITALS: BP 140/90; PULSE 58; RESP 18; TEMP 36.2; O2SAT 98
[2025-03-25] VITALS: BP 117/79; PULSE 50; RESP 20; TEMP 36.4; O2SAT 97
[2025-03-25 04:00] VITALS: BP 148/91; PULSE 74; RESP 17; TEMP 36.3; O2SAT 95
[2025-03-25 08:00] VITALS: BP 145/70; PULSE 57; RESP 18; TEMP 36.3; O2SAT 96
[2025-03-25 11:01] LABS: CREATININE 0.7 mg/dL (0.6-1.3); UREA NITROGEN BLOOD 8 mg/dL (9-23)
[2025-03-25 12:00] VITALS: BP 109/74; PULSE 82; RESP 20; TEMP 36.7; O2SAT 97
[2025-03-25] MEDS ORDERED: NALOXONE HCL 0.4MG/ML VIAL IV PRN (12:15)
[2025-03-25] MEDS ORDERED: IRON SUCROSE COMPLEX 100 MG/5 ML ML IV SCH (12:30)
== END 2025-03-25 13:18 | disposition left against medical advice (07) | DRG 556 ==
LOC: ER 15:48 → 7WST 18:18 → EDBEDREQ 18:22 → CANBEDREQ 18:22 → EDBEDREQSVC 18:22 → EDBEDREQTM 18:22
PROVIDERS: ADMIT Internal Medicine; ATTEND Internal Medicine
DX: M79.604 Pain in right leg (principal); L03.115 Cellulitis of right lower limb; F11.20 Opioid dependence, uncomplicated; D50.9 Iron deficiency anemia, unspecified; F19.90 Other psychoactive substance use, unspecified, uncomplicated; I10 Essential (primary) hypertension; F17.200 Nicotine dependence, unspecified, uncomplicated; Z53.29 Procedure and treatment not carried out because of patient's decision for other reasons
CPT/HCPCS: 36415; 71045; 73110; 73590; 73610; 80048; 80061; 80076; 80202; 80305; 81003; 82728; 83540; 83550; 83605; 84145; 84443; 85025; 93005; 93971; 99285; J0696; J1650; J2270; J2543; J3373; J7030